=== PATIENT | male | born 1985 | race Caucasian/White ===

== ENCOUNTER 2022-03-17 15:22 | Outpatient (CLI) | payer BC | END 2022-03-17 15:23 | disposition home or self-care (01) | LOC: CSHULT 15:22 | PROVIDERS: ATTEND Family Medicine | DX: E04.1 Nontoxic single thyroid nodule (principal) | CPT/HCPCS: 76536 ==

== ENCOUNTER 2025-03-20 10:04 | Outpatient (CLI) | payer OTHER | END 2025-03-20 10:05 | disposition home or self-care (01) | LOC: CSHULT 10:04 | PROVIDERS: ATTEND Family Medicine | DX: N50.89 Other specified disorders of the male genital organs (principal); N50.9 Disorder of male genital organs, unspecified | CPT/HCPCS: 76870 ==